=== PATIENT | male | born 1975 ===

== ENCOUNTER 2022-09-15 14:14 | Outpatient (AMB) | payer MEDICARE, MEDICAID, SELFPAY ==
[2022-09-15 14:19] VITALS: BP 134/76; PULSE 116; O2SAT 94; BMI 29.6
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
== END 2022-09-15 15:06 | disposition home or self-care (01) ==
PROVIDERS: PCP Hospitalist; Visit Provider Internal Medicine
DX: J44.9 Chronic obstructive pulmonary disease, unspecified (principal)
CPT/HCPCS: 99204

== ENCOUNTER 2022-09-15 14:14 | Outpatient (REF) | payer MEDICARE, MEDICAID, SELFPAY ==
--- NOTE | ~2022-09-15 | XR_ITS ---
EXAMINATION: XR CHEST CLINICAL INFORMATION: Chronic obstructive pulmonary disease. COMPARISON: None available. TECHNIQUE: 2 views of the chest were obtained. FINDINGS: Lungs are well expanded. There appears to be minimal linear opacity of atelectasis of the right middle lobe. Otherwise, the lungs are grossly clear. No consolidation, mass or pleural effusion. No interstitial lung disease. Cardiac silhouette is normal in size. The hilar contours are normal. Pulmonary vascular pattern is normal. Mild spondylosis of the thoracic spine. Multiple metallic jacinta project over the right and left chest wall. The the partially visualized nonaggressive chondroid pattern of calcification in the right humeral metaphysis is consistent with enchondroma. XR/XR chest 2V IMPRESSION: * No radiographic evidence of pulmonary emphysema, mass or hilar lymphadenopathy. * No acute pulmonary disease.
== END 2022-09-15 14:15 | disposition home or self-care (01) ==
LOC: HO.XRAY 14:14
PROVIDERS: PCP Hospitalist; Visit Provider Internal Medicine
DX: J44.9 Chronic obstructive pulmonary disease, unspecified (principal)
CPT/HCPCS: 71046; 99202

== ENCOUNTER 2022-11-18 13:10 | Outpatient (AMB) | payer MEDICARE, MEDICAID, SELFPAY ==
[2022-11-18 13:57] VITALS: BP 102/60; PULSE 82; O2SAT 97; BMI 29.6
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
== END 2022-11-18 14:26 | disposition home or self-care (01) ==
PROVIDERS: PCP Hospitalist; Visit Provider Internal Medicine
DX: J44.9 Chronic obstructive pulmonary disease, unspecified (principal)
CPT/HCPCS: 94060; 94727; 94729; 99213

== ENCOUNTER 2022-11-18 13:13 | Outpatient (REF) | payer MEDICARE, MEDICAID, SELFPAY | END 2022-11-18 13:14 | disposition home or self-care (01) | LOC: HO.RESP 13:13 | PROVIDERS: PCP Hospitalist; Visit Provider Internal Medicine | DX: J44.9 Chronic obstructive pulmonary disease, unspecified (principal); J44.89 Other specified chronic obstructive pulmonary disease; J98.4 Other disorders of lung | CPT/HCPCS: 94010; 94727; 94729; 99212 ==

== ENCOUNTER 2023-03-21 10:23 | Outpatient (AMB) | payer MEDICARE, MEDICAID, SELFPAY ==
[2023-03-21 10:29] VITALS: BP 102/68; PULSE 82; O2SAT 98; BMI 28.5
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
== END 2023-03-21 10:59 | disposition home or self-care (01) ==
PROVIDERS: PCP Hospitalist; Visit Provider Internal Medicine
DX: J44.89 Other specified chronic obstructive pulmonary disease (principal); J98.4 Other disorders of lung; F17.200 Nicotine dependence, unspecified, uncomplicated
CPT/HCPCS: 99213

== ENCOUNTER → 2023-03-21 10:23 | Outpatient (BNVA) | payer MEDICARE, MEDICAID, SELFPAY | PROVIDERS: PCP Hospitalist; Visit Provider Internal Medicine | DX: J44.89 Other specified chronic obstructive pulmonary disease (principal); J98.4 Other disorders of lung; F17.210 Nicotine dependence, cigarettes, uncomplicated | CPT/HCPCS: 99212 ==

== ENCOUNTER 2023-09-26 14:07 | Outpatient (AMB) | payer MEDICARE, MEDICAID, SELFPAY ==
[2023-09-26 14:26] VITALS: BP 132/82; PULSE 94; O2SAT 97; BMI 29.7
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
== END 2023-09-26 15:00 | disposition home or self-care (01) ==
PROVIDERS: PCP Hospitalist; Visit Provider Internal Medicine
DX: J44.89 Other specified chronic obstructive pulmonary disease (principal); J98.4 Other disorders of lung; F17.200 Nicotine dependence, unspecified, uncomplicated
CPT/HCPCS: 99213

== ENCOUNTER → 2023-09-26 14:07 | Outpatient (BNVA) | payer MEDICARE, MEDICAID, SELFPAY | PROVIDERS: PCP Hospitalist; Visit Provider Internal Medicine | DX: J44.89 Other specified chronic obstructive pulmonary disease (principal); J98.4 Other disorders of lung; F17.210 Nicotine dependence, cigarettes, uncomplicated | CPT/HCPCS: 99212 ==